=== PATIENT | female | born 1990 | race American Indian/Alaskan Native ===

== ENCOUNTER 2017-06-15 06:32 | Day surgery (SDC) | payer BC, MEDICAID ==
[2017-06-15] MEDS ORDERED: Sodium Chloride 0.9% 10 ML Syringe FLUSH PRN (08:00)
[2017-06-15] MEDS ORDERED: Lactated Ringers 1,000 ML IV SCH (08:00)
[2017-06-15] MEDS ORDERED: ceFAZolin 1 GM Vial IV ONE (08:03)
[2017-06-15] MEDS ORDERED: Dexamethasone 4 MG/ML 5 ML MDV IVPUSH ONE (08:03)
[2017-06-15] MEDS ORDERED: Ondansetron 4 MG/2 ML SDV IVPUSH ONE (08:03)
[2017-06-15] MEDS ORDERED: Succinylcholine/Normal Saline 100 MG/5 ML Syringe IV ONE (08:03)
[2017-06-15] MEDS ORDERED: fentaNYL 100 MCG/2 ML SDV IV ONE (08:03)
[2017-06-15] MEDS ORDERED: Midazolam 1 MG/ML 2 ML SDV IV ONE (08:03)
[2017-06-15] MEDS ORDERED: Ketorolac 30 MG/ML SDV IVPUSH ONE (08:03)
[2017-06-15] MEDS ORDERED: Propofol 200 MG/20 ML SDV IV ONE (08:03)
[2017-06-15] MEDS ORDERED: Acetaminophen/HYDROcodone 325-5 MG Tab PO PRN (09:18)
--- NOTE | 2017-06-15 09:52 | OR ---
DATE OF OPERATION: 06/15/2017 SURGEON: Vasquez Ham MD PROCEDURE PERFORMED: Pilonidal cystectomy with marsupialization. PREOPERATIVE DIAGNOSIS: Symptomatic pilonidal cyst. POSTOPERATIVE DIAGNOSIS: Symptomatic pilonidal cyst. INDICATIONS FOR PROCEDURE: This is a young lady who was referred with a history of a previous I and D's of a pilonidal cyst. She desired excision and was offered and accepted same. DESCRIPTION OF OPERATION: After an excellent general anesthetic was administered, the patient was placed in prone jackknife position. The area around the cyst was infiltrated with a 5 mL of 1:1 mixture of 1% lidocaine with epinephrine and 0.5% bupivacaine. An elliptical incision was then made encompassing the two sinus tracts and then using electrocautery dissection, the cyst itself was excised from the surrounding tissue. A 0 Ethibond was then used to marsupialize the wound, tacking the skin down to the underlying fascia. This was done circumferentially. The area was irrigated. The wound was packed and dressing was applied. Needle, sponge, and instrument counts were reported as correct. The patient was taken to recovery room in good condition. /[id number] /MODL
== END 2017-06-15 10:09 | disposition home or self-care (01) ==
LOC: FB.SDS 06:32
PROVIDERS: ATTEND Surgery
DX: L05.91 Pilonidal cyst without abscess (principal); Z79.2 Long term (current) use of antibiotics; Z79.899 Other long term (current) drug therapy
CPT/HCPCS: 11770; 81025; 88304; A9270; J0330; J0690; J1100; J1885; J2250; J2405; J2704; J3010; J7120